=== PATIENT | male | born 2000 ===

== ENCOUNTER → 2024-06-20 | Outpatient (REF) | payer OTHER ==
[2024-06-20 18:13] LABS: Trichomonas vaginalis (AMP) NOT DETECTED (NEGATIVE)
[2024-06-20 18:37] LABS: GC DNA AMPLIFICATION NEGATIVE (NEGATIVE)
== END ==
LOC: M LAB REF 16:12
PROVIDERS: ATTEND Physician Assistant
DX: Z11.3 Encounter for screening for infections with a predominantly sexual mode of transmission (principal); J06.9 Acute upper respiratory infection, unspecified

== ENCOUNTER → 2024-06-20 | Outpatient (CLI) | payer OTHER ==
[2024-06-20 18:49] LABS: HIV 1&2 SCREEN NEGATIVE (NEGATIVE)
== END ==
LOC: M WUC 13:33
PROVIDERS: ATTEND Physician Assistant
DX: Z72.52 High risk homosexual behavior (principal); Z11.3 Encounter for screening for infections with a predominantly sexual mode of transmission

== ENCOUNTER → 2024-11-14 | Outpatient (CLI) | payer OTHER ==
[2024-11-14 14:55] LABS: HIV 1&2 SCREEN NEGATIVE (NEGATIVE)
[2024-11-14 15:03] LABS: HEPATITIS C VIRUS ABY INDEX 0.09 INDEX (<0.8)
[2024-11-14 15:40] LABS: Trichomonas vaginalis (AMP) NOT DETECTED (NEGATIVE)
[2024-11-14 16:04] LABS: GC DNA AMPLIFICATION NEGATIVE (NEGATIVE)
[2024-11-15 15:09] LABS: HSV 1 IGG TYPE SPECIFIC 11.50 index (<0.90); HSV 2 IGG TYPE SPECIFIC < 0.90 index (<0.90)
== END ==
LOC: M WUC 10:06
PROVIDERS: ATTEND Nurse Practitioner Family
DX: Z11.3 Encounter for screening for infections with a predominantly sexual mode of transmission (principal); R30.0 Dysuria